=== PATIENT | female | born 1940 | race Caucasian/White ===

== ENCOUNTER 2021-08-23 14:50 | Emergency (ER) | payer MEDICARE, MEDICAID, SELFPAY ==
[2021-08-23 15:05] VITALS: BP 124/47; PULSE 60; RESP 16; TEMP 36.9; O2SAT 97
--- NOTE | 2021-08-23 15:29 | ED.FEMALEGU ---
HPI - Female Genitourinary General Chief complaint: Urogenital-Female Stated complaint: poss uti Time Seen by Provider: 08/23/21 15:29 Source: patient and RN notes reviewed Mode of arrival: ambulatory Limitations: no limitations History of Present Illness HPI Narrative: 81-year-old female presents to the [facility] with complaints of painful urination, lower back pain, chills, frequency and urgency. States that she has been dribbling a little bit. States he has had chills but no fevers. No chest pain or abdominal pain. Related Data Home Medications Medication Instructions Recorded Confirmed azelastine INTRANASAL 08/23/21 celecoxib mg 08/23/21 clonazepam 08/23/21 hydrochlorothiazide 08/23/21 losartan 08/23/21 pantoprazole PO 08/23/21 ropinirole mg 08/23/21 sertraline mg 08/23/21 sertraline mg 08/23/21 tramadol mg 08/23/21 trazodone 08/23/21 Allergies Allergy/AdvReac Type Severity Reaction Status Date / Time No Known Allergies Allergy Unverified 08/23/21 15:18 Review of Systems Review of Systems: All systems reviewed & are unremarkable except as noted in HPI and below Constitutional: Constitutional: Reports as per HPI, Reports chills and Denies fatigue Eyes: Eyes: Reports no additional eye complaints ENT: Reports system reviewed and no additional complaints, except as documented Cardiovascular: Cardiovascular: Reports no additional cardiovascular complaints and Denies chest pain Respiratory: Respiratory: Reports no additional respiratory complaints, Denies cough and Denies dyspnea Gastrointestinal: Gastrointestinal: Reports no additional gastrointestinal complaints, Denies abdominal pain, Denies nausea and Denies vomiting Genitourinary: Genitourinary: Reports as per HPI, Reports nocturia, Reports dysuria, Denies flank pain and Reports urinary incontinence Musculoskeletal: Musculoskeletal: Reports no additional musculoskeletal complaints Integumentary/Breasts: Skin/Breast: Reports system reviewed and no additional complaints, except as docu Neurologic: Reports system reviewed and no additional complaints, except as documented Psychiatric: Psychiatric: Reports no additional psychiatric complaints Allergic/Immunologic: Allergic/Immunologic: Reports no additional allergic/immunologic complaints PMFSH Past Medical History Medical History (Updated 08/23/21 @ 17:36 by Matilda Lester) Anxiety Depression H/O gastroesophageal reflux (GERD) Hypertension Polio Social History Social History (Updated 08/23/21 @ 17:36 by Matilda Lester) Gender identity (if verbalized by the patient): Female Comments At the time of my signature, I reviewed and agree with the nursing past medical, surgical, social, and family history. There is no relevant family history pertinent to the patient complaint. Exam Const: General: healthy appearing, no acute distress and alert Nutritional Appearance: well nourished Orientation/consciousness: patient oriented x3 Limitations: no limitations HENMT: Head: normal to inspection Eyes: Pupils: Equal, round and reactive pupils present Neck: Neck: normal visual inspection, no lymphadenopathy and no meningeal signs Chest: Chest palpation & inspection: normal inspection of the chest Resp: Effort & Inspection: normal respiratory effort and no use of accessory muscles Auscultation: clear to auscultation bilaterally, no rales, no rhonchi and no wheezes Cardio: Rate: regular rate Rhythm: regular rhythm GI: GI Palp: Yes Soft to palpation, No Tenderness to palpation present (GI), No Guarding due to palpation present (GI) and No Rebound tenderness present : General: Yes no CVA tenderness Back/Spine/Pelvis: Back: no CVA tenderness Skin: General skin exam: normal color Rashes: no rashes Neuro: General: patient oriented x3, moves all extremities and no meningeal signs Speech: normal speech Gait exam (Neuro): gait abnormal (Uses a motorized wheelchair due
== END 2021-08-23 15:35 | disposition home or self-care (01) ==
PROVIDERS: Emergency Provider Nurse Practitioner
DX: N30.00 Acute cystitis without hematuria (principal); K21.9 Gastro-esophageal reflux disease without esophagitis; I10 Essential (primary) hypertension
CPT/HCPCS: 81003; 87077; 87086; 87186; 99203; G0463

== ENCOUNTER 2022-12-18 11:25 | Emergency (ER) | payer MEDICARE, MEDICAID, SELFPAY ==
[2022-12-18 11:35] VITALS: BP 149/59; PULSE 67; RESP 20; TEMP 36.7; O2SAT 98
--- NOTE | 2022-12-18 11:41 | ED.EYEPROB ---
HPI - Eye Problem General Chief complaint: Eye Problems Stated complaint: Eye Problem Time Seen by Provider: 12/18/22 11:41 Source: patient and RN notes reviewed History of Present Illness HPI Narrative: Patient is an 82-year-old female who presents to urgent care with complaints of severe right eye redness. Patient states that on Sunday she noticed some severe pain in the spread of the redness. Patient states that she called a few sales service professional were unable to get in. States that she has been using ice to the eye. States that there were some discomfort in the eye at this time but denies any vision change. Patient has been using Systane drops. Patient does not were contacts. Denies any headache or known injury. No other acute complaints. No acute distress noted. Patient aware of the plan of care. Some parts of this dictation were generated by voice recognition software and may contain typographical and/or grammatical inaccuracies. Related Data Home Medications Medication Instructions Recorded Confirmed azelastine 137 mcg (0.1 %) nasal See Rx Instructions .Route .COMPLEX 08/23/21 12/18/22 spray aerosol celecoxib 200 mg capsule 200 mg PO DAILY PRN Pain 08/23/21 12/18/22 clonazepam 1 mg tablet 1 mg PO DAILY 08/23/21 12/18/22 hydrochlorothiazide 12.5 mg tablet 12.5 mg PO DAILY 08/23/21 12/18/22 losartan 50 mg tablet 25 mg PO DAILY 08/23/21 12/18/22 pantoprazole 40 mg tablet,delayed 40 mg PO DAILY 08/23/21 12/18/22 release ropinirole 0.5 mg tablet 0.5 mg PO BID PRN restless legs 08/23/21 12/18/22 sertraline 100 mg tablet 100 mg PO DAILY 08/23/21 12/18/22 trazodone 50 mg tablet 50 mg PO DAILY 08/23/21 12/18/22 Allergies Allergy/AdvReac Type Severity Reaction Status Date / Time No Known Allergies Allergy Verified 12/18/22 11:36 Review of Systems Review of Systems: CONSTITUTIONAL: Denies fever, chills, or sweats. EYES: Reports of redness and discomfort to the right eye ENT: Denies rhinorrhea, congestion, sore throat, or otalgia. CARDIOVASCULAR: Denies chest pain, palpitations, or edema. RESPIRATORY: Denies cough or dyspnea. GASTROINTESTINAL: Denies abdominal pain, nausea, vomiting, or diarrhea. GENITOURINARY: Denies dysuria or hematuria. SKIN: Denies rash or itching. MUSCULOSKELETAL: Denies back pain, joint pain, or myalgia. NEUROLOGIC: Denies headache, numbness, or weakness. PSYCHIATRIC: Denies anxiety or depression. All other systems reviewed are negative, except as documented in HPI. [facility] Past Medical History Medical History (Updated 12/18/22 @ 12:07 by ARTURO Ngo) Anxiety Depression H/O gastroesophageal reflux (GERD) Hypertension Polio Social History Social History (Updated 08/23/21 @ 17:36 by Matilda Lester APRN) Gender identity (if verbalized by the patient): Female Comments At the time of my signature, I reviewed and agree with the nursing past medical, surgical, social, and family history. There is no relevant family history pertinent to the patient complaint. Exam Narrative: GENERAL: This is a well-nourished, well-developed patient, in no apparent distress. HEAD: normocephalic, atraumatic. EYES: PERRL. Gross erythema to the sclera of the right eye. Right pupil dilating appropriately. Mild injected conjunctiva to the right. EARS: External ears normal NOSE: External nose normal with no obvious nasal discharge, nares without redness, no rhinorrhea. THROAT: Mucous membranes moist, NECK: Neck supple SKIN: warm, intact with no suspicious lesions or rash, good texture and turgor. NEURO: awake, alert, and oriented to person, place and time. There were no obvious focal neurologic abnormalities. EXTREMITIES: No clubbing, cyanosis, or edema Course Course Level of Care: Express Care Visit Vital Signs Vital signs: Vital Signs Temperature 98.1 F 12/18/22 11:35 Pulse Rate 67 12/18/22 11:35 Respiratory Rate 20 12/18/22 11:35 Blood Pressure 149/59 H 12/18/22 11:35 Pul
== END 2022-12-18 12:10 | disposition short-term general hospital (02) ==
PROVIDERS: Emergency Provider Nurse Practitioner Family; PCP Family Medicine
DX: H57.11 Ocular pain, right eye (principal); K21.9 Gastro-esophageal reflux disease without esophagitis; I10 Essential (primary) hypertension; F41.9 Anxiety disorder, unspecified; F32.A Depression, unspecified
CPT/HCPCS: 99212; G0463